=== PATIENT | female | born 1955 | race Caucasian/White ===

== ENCOUNTER 2017-06-09 01:41 | Inpatient (IN) | payer OTHER ==
[~2017-06-09] VITALS: Ht 170.2 cm; Wt 91.6 kg
--- NOTE | ~2017-06-09 | CO ---
ADMIT: 06/09/2017 RM/LOC: 417 [facility] MR#: [id number] [address] [address] EDVIN FARRIS [address] [place], [place] [id number] Consultation SEX: F AGE: 62 : 1955 DATE OF CONSULTATION: 06/09/2017 ATTENDING PHYSICIAN: Domingo Jimenez CONSULTING PHYSICIAN: Monster Seo MD HISTORY OF PRESENT ILLNESS: The patient is a 62-year-old female, who was recently been admitted to the hospital for acute exacerbation of her COPD. I believe she was just discharged yesterday and did state that she was having a breathing treatment and was coughing heavily and developed the acute onset of some right sided, mostly right lower quadrant abdominal discomfort. She had been getting Lovenox shots to the right side of her abdomen as well. She was sent home, and this pain persisted, became more severe in nature, and noticed a knot or a bulge to the right side of her abdomen. She came in to the ER for evaluation, was worked up and was found to have a right-sided rectus sheath hematoma, was admitted for observation and serial hemoglobins. PAST MEDICAL HISTORY: Includes COPD. SURGICAL HISTORY: She has had: 1. Splenectomy years ago. 2. Tubal ligation. 3. Tonsillectomy. 4. Cataract surgery. 5. Jaw surgery. MEDICATIONS: Include Geritol. ALLERGIES: INCLUDE BACTRIM AND CODEINE. SOCIAL HISTORY: Smokes half pack cigarettes a day. She is a nonalcohol user. She is retired. FAMILY HISTORY: Lung cancer and brain cancer in the family. REVIEW OF SYSTEMS: A 11-point review of systems are negative other than chronic issues with some shortness of breath, and now the right-sided abdominal discomfort. PHYSICAL EXAMINATION: VITAL SIGNS: Stable. She is mildly tachycardic. She is not hypotensive. HEENT: Head is normocephalic and atraumatic. She had no scleral icterus. NECK: Supple. She had no carotid bruits. HEART: Regular rate. LUNGS: Decreased breath sounds at bases. ABDOMEN: Soft. The right side was firm and tender all way from the subcostal margin down to the pubic bone. EXTREMITIES: She had no peripheral edema. NEURO: No focal neurologic deficits. ADMIT: 06/09/2017 RM/LOC: 417 [facility] MR#: [id number] [address] [address] EDVIN FARRIS [address] [place] [address] Consultation SEX: F AGE: 62 : 1955 LABORATORY DATA: Her laboratory workup has revealed a normal INR. Original hemoglobin was 14.6, she is now 12.2. ASSESSMENT AND PLAN: The patient is a 62-year-old female with chronic obstructive pulmonary disease with acute right-sided rectus sheath hematoma. I reviewed the CT scan, and feel like I can see some calcified vessels. I do not see an obvious arterial blush. The patient appears to be hemodynamically stable. We are going to hold off on the Lovenox shots. Try to put the binder on for some additional abdominal compression. Treat her pain with pain medications. Do serial hemoglobins. Hopefully, avoid any need for interventional or surgical remedy. This was discussed with Dr. Jimenez, and Dr. Daniel. Monster Seo MD/ ron JOB #: [id number] CC: Domingo Jimenez, Attending Physician Domingo Jimenez, Family Physician
--- NOTE | ~2017-06-09 | CO ---
ADMIT: 06/09/2017 RM/LOC: 417 [facility] MR#: [id number] [address] [address] EDVIN FARRIS [address] [place] [address] Consultation SEX: F AGE: 62 : 1955 DATE OF CONSULTATION: 06/15/2017 ATTENDING PHYSICIAN: Domingo Jimenez MD CONSULTING PHYSICIAN: Shane Nino MD REASON FOR CONSULTATION: Leukocytosis. HISTORY OF PRESENT ILLNESS: The patient is a 62-year-old female, who was admitted on 06/09/2016 after being discharged earlier that day from a COPD exacerbation. She suddenly had the onset of right lower quadrant abdominal pain that led her back to the emergency room. During the course of her workup, she was interestingly found to have a large retroperitoneal hematoma involving the right rectus sheath measuring up to 25 cm in size. Interestingly, she had received a dose of Lovenox 40 mg subcutaneously that day, it is really her only single dose of an anticoagulant. This was just given for prophylaxis, given her COPD exacerbation. She has now been hospitalized for several days working on her pain control and monitoring of her bleeding risk. Anticoagulants obviously had been held. Her coagulation studies have been normal other than a borderline high PT on 06/09/2017 at 11.7, this will be repeated today. I am being asked to see her for her elevated white count. She presented to hospital on 06/06/2017 with elevated white count of 14, but it improved the next day to 8, but she was started on steroids at that time for her COPD exacerbation, her white count went up to 23 and down to 19 at the time of her discharge on 06/09/2017. When she was readmitted her white count was 20 and subsequent levels have been 19, 36, 37, and today 28. She has had hemoglobin that is at the expected range with her bleed around 10 or 11. It was normal at her initial admission on 06/06. Her platelet counts have been normal. Her leukocytosis has been primarily neutrophilia. She has not had any blasts seen on her peripheral blood. A peripheral smear was performed that did show a few metamyelocytes and myelocytes, but this looked mostly like a reactive process. Of note, the patient has also had a splenectomy in the past at age 1 or 2 for apparent hereditary spherocytosis. She really is not aware of what her baseline and blood counts have shown. She cannot recall any history of bleeding problems prior to this admission. She has had no symptoms leading up to these hospital stays to suggest a malignancy. Her main complaint is her shortness of breath and her abdominal pain. PAST MEDICAL HISTORY: COPD, macular degeneration, splenectomy, and appendectomy. ALLERGIES: REVIEWED IN THE CHART. MEDICATIONS: Reviewed in the chart. SOCIAL HISTORY: The patient smokes a half pack per day. She is not an alcohol user. She is retired. She has a good support network in place. ADMIT: 06/09/2017 RM/LOC: [address] [place] [address] MR#: [id number] [address] [place] [id number] EDVIN FARRIS [address] [place] [address] Consultation SEX: F AGE: 62 : 1955 FAMILY HISTORY: There are some brain cancer and lung cancer in the family. She is not aware of any hereditary recurrent malignancies. REVIEW OF SYSTEMS: See HPI. Otherwise, a complete review of systems was obtained and was negative. PHYSICAL EXAMINATION: VITAL SIGNS: Temperature 97, pulse 85, respirations 18, blood pressure 136/77. GENERAL: The patient is in no acute distress and provided me a good history. She is alert and oriented. HEENT: Mucous membranes are moist. No oral lesions are seen. Extraocular muscles are intact. Pupils are reactive and symmetrical. NECK: Without adenopathy or JVD. HEART: Regular rate and rhythm without murmurs. LUNGS: Clear to auscultation without any crackles or wheezes. ABDOMEN: Soft, nontender, and nondistended with positive bowel sounds throughout. No organomegaly is appreciated. EXTREMITIES: No edema, rashes, lesions, or adenopathy. LABORATORY DATA: Please see HPI. IMPRESSION: 1. Leukocytosis with predominant neutrophilia. I suspect this is related to her steroid use for her chronic obstructive pulmonary disease exacerbation as well as her baseline smoking history and possibly contributed by her splenectomy. I will send some additional laboratory studies and see her back in clinic for followup in a couple of weeks after we have all of these results. I do not really suspect this is an underlying malignancy. I expect this will trend back to normal over the next couple of months. 2. Retroperitoneal hematoma. This is quite unusual from just a single low dose of Lovenox. She did have a fairly severe coughing spell that same day, which I suspect really triggered this. I will check some additional bleeding parameters just to make sure we are not dealing with any type of coagulopathy. I appreciate this consultation. Shane Nino MD/ ron JOB #: [id number] CC: Domingo Jimenez MD, Attending Physician Domingo Jimenez MD, Family Physician
--- NOTE | 2017-06-09 05:04 | ER ---
ADMIT: 06/09/2017 RM/LOC: ER [facility] MR#: [id number] [address] [address] EDVIN FARRIS [address] [place] [address] Emergency Room Report SEX: F AGE: 62 : 1955 DATE: 06/09/2017 CHIEF COMPLAINT: Right lower quadrant abdominal pain. HISTORY OF PRESENT ILLNESS: The patient is a 62-year-old female, released yesterday from hospital after 2-day stay for COPD, was giving herself a treatment tonight and had acute-onset right lower quadrant abdominal pain without urgency, nausea, vomiting, fevers, chills, or injury. Denies any biliary colic symptoms. PAST MEDICAL HISTORY: ALLERGIES: SULFA, CODEINE, AND ALCOHOL. MEDICATIONS: Please see nurse's MAR. ILLNESSES: 1. COPD. 2. Hereditary spherocytosis. OPERATIONS: 1. Tubal ligations. 2. Mandible fracture. 3. ORIF. 4. Tonsillectomy. 5. 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 6. Incidental appendectomy according to the patient, though no records. 7. Left cataract with intraocular lens implant. 8. Right retinal pucker and laser. SOCIAL HISTORY: Smokes 1/2 pack per day. No illicit drugs or alcohol. FAMILY HISTORY: Otherwise negative for all other systems, illnesses, or operations except as outlined above. PHYSICAL EXAMINATION: VITAL SIGNS: Temperature 96.9, pulse 68, respirations 24, blood pressure 139/93, SaO2 of 90% on room air. Weight 93.4 kg. GENERAL: In acute distress, anxious, non diaphoretic. HEENT: Normocephalic. No evidence of epistaxis, rhinorrhea, or otorrhea. NECK: Supple without lymphadenopathy or thyromegaly. CHEST: Clear. Breath sounds equal, though diminished without rales, rhonchi, or wheeze. HEART: Regular rate and rhythm without murmur, gallop, or edema. ABDOMEN: Obese, diffusely tender particularly right lower quadrant with vague mass in the right upper and lower quadrants, nonpulsatile, but exquisitely tender. Bowel sounds are active. BACK: No CVA tenderness. EXTREMITIES: No evidence of Homans sign, synovitis, or dermatitis. NEURO: EOMI. PERRLA. No evidence of drift, dysarthria, or ataxia. Gait ADMIT: 06/09/2017 RM/LOC: ER [facility] MR#: [id number] [address] [address] EDVIN FARRIS [address] [place] [address] Emergency Room Report SEX: F AGE: 62 : 1955 antalgic. MEDICAL DECISION MAKING: CT renal shows large right rectus hematoma, cannot rule out mass as well as pericholecystic fluid, dilated gallbladder with sludge. Otherwise, unremarkable. Abdomen, CT with contrast shows extravasation in the hematoma. WBC 19.4, normal hemoglobin and platelets. Lactic 1.8. Glucose 150. Rising AST and ALT, but normal alkaline phosphatase and bilirubin. Normal lipase. The patient was given a liter of fluid, Zofran, Toradol, and Dilaudid with improvement of pain. Tranexamic acid 1 g IV piggyback. Discussed case with Dr. Jimenez and María. Dr. Daniel evaluated and wrote orders in department. Due to the patient's presentation, findings, and intervention, 30 minutes of critical care is warranted. Covered with Zosyn 3.375 g. DIAGNOSIS: 1. Acute right rectus hematoma due to coughing paroxysm. 2. [id number] cholecystitis with rising liver function test. RECOMMENDATION: Admit inpatient Med/Surg for Dr. Jimenez. ADMISSION AND DISCHARGE CONDITION: Stable. The patient is a full code. Patricio Bales MD/ ron JOB #: [id number] CC: Patricio Bales MD, Attending Physician Yuki Ronquillo PA-C, Family Physician Yuki Ronquillo PA-C
--- NOTE | 2017-06-12 08:34 | HP ---
ADMIT: 06/09/2017 RM/LOC: 417 [facility] MR#: [id number] [address] [address] EDVIN FARRIS [address] [place] [address] History and Physical SEX: F AGE: 62 : 1955 DATE OF SERVICE: 06/09/2017 CHIEF COMPLAINT: Acute severe abdominal pain. HISTORY OF PRESENT ILLNESS: The patient presents with severe abdominal pain since this afternoon. The patient is actually discharged today to home from the hospital for an acute shortness of breath concerning for possible COPD based on the patient's smoking history and x-ray findings. She said she was feeling well this morning, and before she left, she got a Lovenox shot into the right side of her abdomen. She states when she got home, she was doing okay and then all of a sudden started having some right lower quadrant pain. She called into the clinic today to discuss her symptoms. They told her to try treatment for indigestion, which did help mildly with the Tums. However, the pain returned. She also had a coughing fit, where the pain became more severe, and she started noticing a knot or bulge on her right lower abdomen or anything that has relieved the pain is by putting pressure over this area. She came into the ER today for evaluation. Also, to note, when the patient was here for her shortness of breath previously, she was found to have a hepatomegaly with fatty infiltrate. LABORATORY AND DIAGNOSTIC DATA: Evaluated here in the ER. Overall, sodium was 137, potassium 3.6, chloride 106, CO2 of 26, BUN 15, creatinine 0.9, glucose 115, and calcium of 8.5. Total bilirubin is 0.7, total protein is 6.9, anion gap is 9, albumin 3.5, AST is elevated at 137, and ALT was 216. These levels have at least doubled since her last visit. Lipase of 332. Troponin of less than 0.015. CRP was 0.32. Lactic acid was 1.8. White blood cell count was 19.4. Earlier today, her white blood cell count was 24. Hemoglobin was 14.2 and platelets were 276. Abdominal CT was done first per stone protocol which did not show any signs of stone, however did show a possible hematoma. The CT was repeated with contrast, and it showed a rectus sheath hematoma measuring 8.2 x 6 x 28 cm with acute extravasation of the contrast fluid; also showed some gallbladder inflammation, mild and some gallstones; and then also showed hepatic steatosis. PAST MEDICAL HISTORY: Significant for macular pucker; cataracts; hereditary spherocytosis, which she has had a splenectomy for; and possible COPD. SOCIAL HISTORY: Positive for smoking, she smokes 1/2 pack per day. No alcohol use. She is retired. FAMILY HISTORY: Significant for brain cancer, dementia, and lung cancer. PAST SURGICAL HISTORY: She has had tubal ligation, cataract surgery, macular pucker repair, tonsillectomy, splenectomy at age 1, and jaw surgery. She also thinks she may have had her appendix removed during her tubal ligation that she can remember for sure. ADMIT: 06/09/2017 RM/LOC: [address] [place] [address] MR#: [id number] [address] [place] [id number] EDVIN FARRIS [address] [place] [address] History and Physical SEX: F AGE: 62 : 1955 MEDICATIONS: See list. ALLERGIES: CODEINE, ALCOHOL, AND BACTRIM. REVIEW OF SYSTEMS: GENERAL: No headache. No blurry vision. No fever or chills. HEENT: No sinus congestion, sore throat, or neck pain. Again, no blurry vision. HEART: No chest pain. No palpitations. LUNGS: She does have some mild shortness of breath, which has been improving. She has also had some mild wheezing again and previously when she was admitted here originally. GASTROINTESTINAL: She has a severe right lower quadrant pain and swelling in this area. No diarrhea or constipation. No blood in the stools. No nausea or vomiting. PSYCHIATRIC: No depression. Otherwise, as mentioned in the HPI. PHYSICAL EXAMINATION: VITAL SIGNS: Blood pressure 112/57 with a MAP of 74, heart rate of 72, respirations 20, and 97% O2 on nasal cannula. GENERAL: She does appear in some acute pain. Alert and oriented x3. HEENT: Normocephalic and atraumatic. Moist mucous membranes. Extraocular muscles are intact. NECK: Supple. HEART: Regular rate and rhythm. No murmur. CHEST: Clear to auscultation bilaterally. Mild increased respiratory rate. ABDOMEN: Soft. Positive pain in the right lower quadrant. Decreased bowel sounds. She does have some increased swelling in the right lower quadrant, though difficult to assess as the patient will not allow me to assess well due to her pain. EXTREMITIES: Show some trace edema bilaterally. Normal range of motion. NEUROLOGIC: Cranial nerves II through XII are grossly intact. ASSESSMENT AND PLAN: 1. Rectus hematoma with acute bleed. ADMIT: 06/09/2017 RM/LOC: [address] [place] [address] MR#: [id number] [address] [place] [phone] EDVIN FARRIS [address] [place] [address] History and Physical SEX: F AGE: 62 : 1955 2. Hepatomegaly with increased liver function test. 3. Chronic obstructive pulmonary disease. At this time, we will admit the patient to PCU status with telemonitoring. While we will consult General Surgery in the morning for their assessment and further plan for this hematoma as well as her possible gallbladder inflammation, I will repeat CBC, CMP, PT, PTT, and INR in the morning as well as hepatitis panel. We will make her n.p.o. If the patient does not need surgery, we will treat her pain with IV Dilaudid 0.5 mg every 2 hours. Continue DuoNeb. Continue her scheduled Levaquin and continue her scheduled prednisone that were sent at discharge. We will not do any VTE prophylaxis due to recurrent active bleed. We will continue to follow. Mahsa Daniel MD Resident / Domingo Jimenez MD / ron JOB #: [id number] CC: Domingo Jimenez, Attending Physician Domingo Jimenez, Family Physician
[2017-06-18] MEDS ORDERED: KLOR-CON M2020 ME1 PO (18:17)
[2017-06-18] MEDS ORDERED: DIFLUCAN100 MG PO (18:17)
[2017-06-18] MEDS ORDERED: [UNRECOGNIZED DRUG - OTHER] PO (18:17)
[2017-06-18] MEDS ORDERED: METAMUCIL SF P3.4 GM PO (18:17)
[2017-06-18] MEDS ORDERED: NYSTATIN100000 UNI PO (18:18)
[2017-06-18] MEDS ORDERED: MIRALAX PACKET17 GM PO (18:18)
[2017-06-18] MEDS ORDERED: LEVAQUIN DPS500 MG PO (18:19)
[2017-06-18] MEDS ORDERED: DUONEB DPS3 ML IH (18:19)
[2017-06-18] MEDS ORDERED: DELTASONE DPS10 MG PO (18:20)
--- NOTE | 2017-07-02 13:21 | DS ---
ADMIT: 06/09/2017 RM/LOC: 417 [facility] MR#: [id number] [address] [address] EDVIN FARRIS [address] [place] [address] General Discharge Summary SEX: F AGE: 62 : 1955 ADMISSION DATE: 06/09/2017 DISCHARGE DATE: 06/16/2017 CONSULTS: 1. Surgery. 2. Heme/Oncology. FINAL DIAGNOSES: 1. Abdominal pain secondary to a right rectus sheath hematoma. 2. Acute bleed anemia. Also of note, the patient had anemia during hospitalization and required transfusion. 3. Leukocytosis with predominant neutrophilia. 4. Chronic obstructive pulmonary disease exacerbation. HOSPITAL COURSE: Abdominal pain: The patient presented to the ER with less than 24 hours of acute severe abdominal pain. The patient was actually discharged from the hospital earlier that day. She had been admitted for a COPD exacerbation. The patient mentions that she was coughing very hard, that is when the pain started. Due to severe pain, she came back to the ER. The patient was found to have this right rectus sheath hematoma. Surgery was consulted. They did not feel that surgery was needed at this time. We continued to follow the patient's hemoglobin to ensure they remain stable, which they did. The patient did continue to have elevated leukocytosis with peripheral blood smear. We noted that the patient had predominant neutrophilia. The hematologists were consulted. They ran some other studies at that time, and advised the patient to return to their clinic in 3 weeks for further workup. Also of note, the patient still had her COPD exacerbation, continued to receive treatment. She did have some moments of increased hypoxia. This did improve with antibiotics and breathing treatments. MEDICATIONS: 1. Diflucan 100 mg daily x3. 2. Klor-Con 20 mg b.i.d. 3. Metamucil b.i.d. ADMIT: 06/09/2017 RM/LOC: 417 [facility] MR#: [id number] [facility] [address] [place] [phone] EDVIN FARRIS [address] [place] [address] General Discharge Summary SEX: F AGE: 62 : 1955 4. MiraLax daily. 5. 5 mL q.i.d. x5 days. 6. Geritol vitamins. 7. DuoNeb every 4 as needed. 8. Prednisone taper 20 mg for four days and then 10 mg for four days. Diet: As current. LABORATORY DATA: She is to repeat a CBC, CMP, and a chest x-ray in clinic. O2 was determined by Respiratory Therapy. She is to make an appointment with Yuki Ronquillo PA-C in 3 to 5 at the time of discharge. Mahsa Daniel MD Resident / Domingo Jimenez MD / ron JOB #: [id number] CC: Domingo Jimenez MD, Attending Physician Domingo Jimenez MD, Family Physician
== END 2017-06-16 12:33 | disposition home or self-care (01) | DRG 555 ==
LOC: ER 01:41 → 4PCU 03:40
PROVIDERS: ADMIT Family Medicine
DX: M79.81 Nontraumatic hematoma of soft tissue (principal); J96.01 Acute respiratory failure with hypoxia; R16.0 Hepatomegaly, not elsewhere classified; J44.1 Chronic obstructive pulmonary disease with (acute) exacerbation; D62 Acute posthemorrhagic anemia; K76.0 Fatty (change of) liver, not elsewhere classified; F17.210 Nicotine dependence, cigarettes, uncomplicated; D72.829 Elevated white blood cell count, unspecified; B37.9 Candidiasis, unspecified; E87.6 Hypokalemia